=== PATIENT | female | born 1955 ===

== ENCOUNTER 2021-09-21 06:00 | Day surgery (SDC) | payer OTHER ==
[~2021-09-21] VITALS: Ht 160 cm; Wt 61.7 kg
[~2021-09-21 06:00] MED LIST: ATORVASTATIN CA10 MG PO; SYNTHROID75 MCG PO
[2021-09-21] MEDS ORDERED: IBU600 MG PO (11:45)
== END 2021-09-21 14:20 | disposition home or self-care (01) ==
LOC: CIR.AMB 06:00
PROVIDERS: ATTEND Obstetrics & Gynecology Gynecology
DX: D25.0 Submucous leiomyoma of uterus (principal); N84.0 Polyp of corpus uteri; Q51.818 Other congenital malformations of uterus; Z20.822 Contact with and (suspected) exposure to COVID-19; E78.00 Pure hypercholesterolemia, unspecified; J45.909 Unspecified asthma, uncomplicated; Z86.16 Personal history of COVID-19; Z87.891 Personal history of nicotine dependence; E03.9 Hypothyroidism, unspecified